=== PATIENT | male | born 1975 | race Caucasian/White ===

== ENCOUNTER 2018-04-08 07:40 | Day surgery (SDC) | payer MEDICAID ==
[2018-04-08] VITALS (10 sets, daily range): BP systolic 114–155; BP diastolic 65–98
[~2018-04-08] VITALS: Ht 162 cm; Wt 54.9 kg
[~2018-04-08 07:40] MED LIST: ALEN70TA13 PO; BENZ1TAB7 PO; CARB300C2 PO; HAL5T PO; KEP500T PO; LACT10SO32 PO; POLY17PO10 PO; TEMA30CA5 PO; VAL5T PO; VERA240T PO; famotidine 20mg tablet PO ONE; ringers solution, lacted 1,000 ML IV SCH
[2018-04-08] MEDS ORDERED: famotidine/PF 10 mg/ml inj IV ONE ×2 (10:28→10:30)
[2018-04-08] MEDS ORDERED: fentaNYL/PF 50MCG/1 ML 2ML syringe ONE ×2 (10:29→11:55)
[2018-04-08] MEDS ORDERED: midazolam 2 mg/2 ml injection ONE (10:30)
[2018-04-08] MEDS ORDERED: sevoflurane 250ml liquid IH ONE (11:08)
[2018-04-08] MEDS ORDERED: LIDOcaine 2% (20mg/ml) 5ml vial ONE (11:54)
[2018-04-08] MEDS ORDERED: glycopyrrolate 0.2mg/ml inj ONE (11:54)
[2018-04-08] MEDS ORDERED: propofol inj 20 ML IV ONE (11:54)
[2018-04-08] MEDS ORDERED: dexamethasone sod phosphate 4mg/ml inj. ONE (11:54)
[2018-04-08] MEDS ORDERED: rocuronium 10mg/ml inj IV ONE (11:54)
[2018-04-08] MEDS ORDERED: oxymetazoline 15 ML nasal spray NS ONE (11:54)
[2018-04-08] MEDS ORDERED: ondansetron/PF 4mg/2ml inj ONE (11:54)
[2018-04-08] MEDS ORDERED: neostigmine methylsulfate 1 MG/ML 10ml vial ONE (11:54)
[2018-04-08 12:11] LABS: BASOPHILS % (AUTO) 0.5 % (0-1); EOSINOPHILS # (AUTO) 0.1 X10'3 (0-0.9); EOSINOPHILS % (AUTO) 1.7 % (0-6); HEMATOCRIT 46.4 % (42.0-52.0); HEMOGLOBIN 15.5 g/dl (14.0-17.9); LYMPHOCYTES # (AUTO) 1.4 X10'3 (1.1-4.8); LYMPHOCYTES % (AUTO) 26.6 % (21-51); MEAN CORPUSCULAR HEMOGLOBIN 31.5 PG (27.0-31.0); MEAN CORPUSCULAR HGB CONC 33.4 % (33.0-36.5); MEAN CORPUSCULAR VOLUME 94.3 FL (78-98); MEAN PLATELET VOLUME 8.8 FL (7.4-10.4); MONOCYTES # (AUTO) 0.5 X10'3 (0-0.9); NEUTROPHILS # (AUTO) 3.3 X10'3 (1.8-7.7); NEUTROPHILS % (AUTO) 61.2 % (42-75); PLATELET COUNT 220 X10'3 (140-440); RED BLOOD COUNT 4.92 X10'6 (4.70-6.10); RED CELL DISTRIBUTION WIDTH 12.9 % (11.5-14.5); WHITE BLOOD COUNT 5.4 X10'3 (4.5-11.0)
[2018-04-08 12:12] LABS: ALANINE AMINOTRANSFERASE 36 U/L (12-78); ALBUMIN 3.8 G/DL (3.4-5.0); ALBUMIN/GLOBULIN RATIO 1.2 (1.1-1.5); ALKALINE PHOSPHATASE 80 IU/L (46-116); ANION GAP 3 (8-16); ASPARTATE AMINO TRANSFERASE 19 U/L (10-37); BILIRUBIN,TOTAL 0.2 MG/DL (0.1-1.0); BLOOD UREA NITROGEN 15 MG/DL (7-18); BUN/CREATININE RATIO 18.8 (5.4-32.0); CALCIUM 8.6 MG/DL (8.5-10.1); CHLORIDE 106 MMOL/L (99-107); GLUCOSE 84 MG/DL (70-104); POTASSIUM 4.2 MMOL/L (3.5-5.1); SODIUM 142 MMOL/L (135-145); TOTAL CARBON DIOXIDE 32.6 MMOL/L (24-32); eGFR > 90 ML/MIN
[2018-04-08] MEDS ORDERED: ringers solution, lacted 1,000 ML IV SCH (13:04)
[2018-04-08] MEDS ORDERED: ondansetron/PF 4mg/2ml inj IV PRN (13:05)
[2018-04-08] MEDS ORDERED: proCHLORperazine 10 MG/2 ml inj IV PRN (13:05)
[2018-04-08] MEDS ORDERED: morphine 4 MG/ML inj SYRINge IV PRN ×2 (13:05)
[2018-04-08] MEDS ORDERED: meperidine/PF 25mg/ml syringe IV PRN ×3 (13:05)
== END 2018-04-08 14:47 | disposition home or self-care (01) ==
LOC: PRE-OP 07:40 → PAS 14:47
PROVIDERS: ATTEND Dentist
DX: K02.9 Dental caries, unspecified (principal); K05.30 Chronic periodontitis, unspecified; K03.6 Deposits [accretions] on teeth; G80.8 Other cerebral palsy; M81.0 Age-related osteoporosis without current pathological fracture; K59.00 Constipation, unspecified; I73.00 Raynaud's syndrome without gangrene; Z89.9 Acquired absence of limb, unspecified; Z86.69 Personal history of other diseases of the nervous system and sense organs; Z98.890 Other specified postprocedural states; Z79.899 Other long term (current) drug therapy
CPT/HCPCS: 36415; 41899; 80053; 85025; J1100; J2001; J2250; J2405; J2704; J2710; J3010; J3490; J7120; A7000

== ENCOUNTER 2020-10-22 11:54 | Emergency (ER) | payer MEDICARE, MEDICAID ==
[~2020-10-22] VITALS: Ht 162.6 cm; Wt 52.7 kg
[~2020-10-22 11:54] MED LIST changes: -ALEN70TA13 PO; +ALEN70TA80 PO; +DIAZ5TAB22 PO; -VAL5T PO; -famotidine 20mg tablet PO ONE; -ringers solution, lacted 1,000 ML IV SCH
[2020-10-22] MEDS ORDERED: normal saline 1000ML IV soln IVB ONE ×2 (12:00→12:05)
[2020-10-22 12:45] LABS: BASOPHILS % (AUTO) 0.3 % (0-1); EOSINOPHILS % (AUTO) 0 % (0-6); HEMATOCRIT 45.3 % (42.0-52.0); HEMOGLOBIN 15.2 g/dl (14.0-17.9); LYMPHOCYTES # (AUTO) 0.6 X10'3 (1.1-4.8); LYMPHOCYTES % (AUTO) 5.6 % (21-51); MEAN CORPUSCULAR HEMOGLOBIN 32.1 PG (27.0-31.0); MEAN CORPUSCULAR HGB CONC 33.5 g/dL (33.0-36.5); MEAN CORPUSCULAR VOLUME 95.7 FL (78-98); MEAN PLATELET VOLUME 7.9 FL (7.4-10.4); MONOCYTES # (AUTO) 0.9 X10'3 (0-0.9); MONOCYTES % (AUTO) 8.4 % (2-12); NEUTROPHILS # (AUTO) 9.4 X10'3 (1.8-7.7); NEUTROPHILS % (AUTO) 85.7 % (42-75); PLATELET COUNT 201 X10'3 (140-440); RED BLOOD COUNT 4.74 X10'6 (4.70-6.10); RED CELL DISTRIBUTION WIDTH 13.4 % (11.5-14.5)
[2020-10-22 13:00] LABS: ALANINE AMINOTRANSFERASE 46 U/L (12-78); ALBUMIN 3.9 G/DL (3.4-5.0); ALBUMIN/GLOBULIN RATIO 1.1 (1.1-1.5); ALKALINE PHOSPHATASE 105 IU/L (46-116); ANION GAP 13 (8-16); ASPARTATE AMINO TRANSFERASE 24 U/L (10-37); BILIRUBIN,TOTAL 0.2 MG/DL (0.1-1.0); BLOOD UREA NITROGEN 15 MG/DL (7-18); CALCIUM 8.8 MG/DL (8.5-10.1); CHLORIDE 101 MMOL/L (99-107); CREATININE 0.94 MG/DL (0.60-1.10); GLUCOSE 110 MG/DL (70-104); POTASSIUM 4.3 MMOL/L (3.5-5.1); SODIUM 142 MMOL/L (135-145); TOTAL CARBON DIOXIDE 28.3 MMOL/L (24-32); TOTAL PROTEIN 7.3 G/DL (6.4-8.2); eGFR 87 ML/MIN
[2020-10-22] MEDS ORDERED: lactulose 20gm/30ml cup PO ONE (13:45)
[2020-10-22] MEDS ORDERED: mineral oil 133ml enema RC PRN (13:45)
[2020-10-22 15:00] VITALS: BP 142/94
--- NOTE | 2020-10-22 15:13 | NUR ---
NO STOOLS YET. SANTOS MIRANDA STATES THAT PATIENT IS OK FOR DISCHARGE AND SHOULD RESUME HIS ROUTINE BOWEL CARE AT THE FACILITY. CAREGIVER THAT IS AT THE BEDSIDE IS NOTIFIED OF DISCHARGE AND STATES THAT SHE WILL BE CALLING HER CO-WORKER FOR A RIDE. CAREGIVER STATES THAT IT MAY TAKE OVER AN HOUR FOR TRANSPORTATION BECAUSE THE DEPUTY DIRECTOR OF NURSING HAS TO MAKE MULTIPLE STOPS PRIOR TO ARRIVING HERE. IV REMOVED WITH TIP INTACT.
== END 2020-10-22 17:00 | disposition home or self-care (01) ==
LOC: ER 11:55
DX: K59.09 Other constipation (principal); R11.10 Vomiting, unspecified; G80.9 Cerebral palsy, unspecified; G40.909 Epilepsy, unspecified, not intractable, without status epilepticus; M81.0 Age-related osteoporosis without current pathological fracture; Z79.899 Other long term (current) drug therapy
CPT/HCPCS: 36415; 74176; 80053; 83605; 85025; 87040; 87186; 96360; 99284; J7030; 87077

== ENCOUNTER 2021-01-08 10:21 | Emergency (ER) | payer MEDICARE, MEDICAID ==
[~2021-01-08] VITALS: Ht 160 cm; Wt 59.1 kg
[2021-01-08 11:09] LABS: BASOPHILS % (AUTO) 0.5 % (0-1); EOSINOPHILS % (AUTO) 0.7 % (0-6); HEMATOCRIT 44.1 % (42.0-52.0); HEMOGLOBIN 14.9 g/dl (14.0-17.9); LYMPHOCYTES # (AUTO) 1.3 X10'3 (1.1-4.8); LYMPHOCYTES % (AUTO) 20.5 % (21-51); MEAN CORPUSCULAR HEMOGLOBIN 32.2 PG (27.0-31.0); MEAN CORPUSCULAR HGB CONC 33.7 g/dL (33.0-36.5); MEAN CORPUSCULAR VOLUME 95.4 FL (78-98); MEAN PLATELET VOLUME 7.4 FL (7.4-10.4); MONOCYTES # (AUTO) 0.7 X10'3 (0-0.9); MONOCYTES % (AUTO) 10.6 % (2-12); NEUTROPHILS # (AUTO) 4.5 X10'3 (1.8-7.7); NEUTROPHILS % (AUTO) 67.7 % (42-75); PLATELET COUNT 187 X10'3 (140-440); RED BLOOD COUNT 4.62 X10'6 (4.70-6.10); RED CELL DISTRIBUTION WIDTH 13.2 % (11.5-14.5); WHITE BLOOD COUNT 6.6 X10'3 (4.5-11.0)
[2021-01-08 11:15] LABS: CLARITY,URINE CLEAR (Clear); COLOR,URINE YELLOW (Yellow); GLUCOSE, URINE NEGATIVE (Neg); KETONES,URINE TRACE mg/dl (Neg); LEUKOCYTE ESTERASE ,URINE NEGATIVE (Neg); NITRITES, URINE NEGATIVE (Neg); OCCULT BLOOD,URINE NEGATIVE (Neg); PH,URINE 6.5 (4.8-8.0); PROTEIN,URINE NEGATIVE (Neg); UROBILINOGEN,URINE 0.2 E.U/dL (0.2-1.0)
[2021-01-08 11:18] LABS: ALBUMIN 3.7 G/DL (3.4-5.0); ANION GAP 5 (8-16); BLOOD UREA NITROGEN 9 MG/DL (7-18); BUN/CREATININE RATIO 11.3 (5.4-32.0); CALCIUM 8.3 MG/DL (8.5-10.1); CHLORIDE 103 MMOL/L (99-107); GLUCOSE 70 MG/DL (70-104); POTASSIUM 4.4 MMOL/L (3.5-5.1); SODIUM 140 MMOL/L (135-145); TOTAL CARBON DIOXIDE 32.2 MMOL/L (24-32); eGFR > 90 ML/MIN
[2021-01-08 11:23] LABS: UA COLLECTION TYPE STRAIGHT CATH
[2021-01-08 12:54] VITALS: BP 110/60
== END 2021-01-08 12:55 | disposition home or self-care (01) ==
LOC: ER 10:21
DX: K59.00 Constipation, unspecified (principal); R39.198 Other difficulties with micturition; Z86.69 Personal history of other diseases of the nervous system and sense organs; Z79.899 Other long term (current) drug therapy
CPT/HCPCS: 36415; 80048; 81003; 85025; 99284

== ENCOUNTER 2021-03-17 10:07 | Emergency (ER) | payer MEDICARE, MEDICAID ==
[~2021-03-17] VITALS: Ht 162.6 cm; Wt 64.1 kg
[2021-03-17 11:04] VITALS: BP 118/92
[2021-03-17] MEDS ORDERED: ALBU8HFA PO (12:46)
[2021-03-17] MEDS ORDERED: AMOX-422 PO (12:46)
[2021-03-17] MEDS ORDERED: ROBCFL PO (12:46)
[2021-03-17] MEDS ORDERED: EUCA50OI5 TP (13:00)
== END 2021-03-17 14:03 | disposition home or self-care (01) ==
LOC: ER 10:08
DX: J20.9 Acute bronchitis, unspecified (principal); Z20.822 Contact with and (suspected) exposure to COVID-19; G40.909 Epilepsy, unspecified, not intractable, without status epilepticus; M81.0 Age-related osteoporosis without current pathological fracture; Z79.2 Long term (current) use of antibiotics; Z79.899 Other long term (current) drug therapy
CPT/HCPCS: 71045; 87635; 99284; C9803

== ENCOUNTER 2021-07-06 16:12 | Emergency (ER) | payer MEDICARE, MEDICAID ==
[~2021-07-06] VITALS: Ht 160 cm; Wt 52.7 kg
[~2021-07-06 16:12] MED LIST changes: +EUCA50OI5 TP
[2021-07-06 16:45] VITALS: BP 132/79
[2021-07-06] MEDS ORDERED: AMOX-117 PO (18:26)
[2021-07-06] MEDS ORDERED: IBUP-1986 PO (18:26)
[2021-07-06] MEDS ORDERED: amox tr/potassium clavulanate 875/125mg TAB PO ONE (18:30)
[2021-07-06] MEDS ORDERED: HYDROcodone/acetaminophen 5mg/325mg tablet PO ONE (18:30)
== END 2021-07-06 18:52 | disposition home or self-care (01) ==
LOC: ER 16:12
DX: H60.502 Unspecified acute noninfective otitis externa, left ear (principal); G80.9 Cerebral palsy, unspecified; Z86.69 Personal history of other diseases of the nervous system and sense organs; Z79.2 Long term (current) use of antibiotics; Z79.899 Other long term (current) drug therapy
CPT/HCPCS: 99283

== ENCOUNTER 2021-07-15 08:41 | Day surgery (SDC) | payer MEDICARE, MEDICAID ==
[~2021-07-15 08:41] MED LIST changes: +AMOX-117 PO; +IBUP-1986 PO; +MIDAZolam 1 MG/ML 5ML VIAL ONE; +diphenhydrAMINE 50 mg/ml inj ONE; +fentaNYL/PF 50MCG/1 ML 2ML syringe ONE
[2021-07-15 08:50] VITALS: BP 143/96
[2021-07-15] MEDS ORDERED: VERA180C3 (09:16)
[2021-07-15] MEDS ORDERED: CALC-855 PO (09:17)
[2021-07-15] MEDS ORDERED: FLO0.4C PO (09:19)
[2021-07-15] MEDS ORDERED: FAMO40TA73 PO (09:20)
[2021-07-15] MEDS ORDERED: LINA290C PO (09:21)
[2021-07-15] MEDS ORDERED: LORA10TA7 PO (09:21)
[2021-07-15] MEDS ORDERED: LACT1CAP75 PO (09:22)
[2021-07-15] MEDS ORDERED: MULT-1085 PO (09:22)
[2021-07-15] MEDS ORDERED: SIME80TA15 PO (09:23)
[2021-07-15] MEDS ORDERED: SENN-263 PO (09:24)
[2021-07-15] MEDS ORDERED: ASCO500C18 PO (09:25)
[2021-07-15] MEDS ORDERED: diphenhydrAMINE 50 mg/ml inj ONE (10:32)
[2021-07-15 10:55] VITALS: BP 157/85
[2021-07-15 11:05] VITALS: BP 150/101
[2021-07-15 11:15] VITALS: BP 172/101
[2021-07-15 11:25] VITALS: BP 129/73
== END 2021-07-15 11:50 | disposition home or self-care (01) ==
LOC: GI LAB 08:41
PROVIDERS: ATTEND Internal Medicine Gastroenterology
DX: K92.1 Melena (principal); K63.89 Other specified diseases of intestine; I73.00 Raynaud's syndrome without gangrene; G40.909 Epilepsy, unspecified, not intractable, without status epilepticus; G80.9 Cerebral palsy, unspecified; Z79.899 Other long term (current) drug therapy
CPT/HCPCS: 45378; 99153; G0500; J1200; J2250; J3010; J7040; Z7512; 99152; A4620

== ENCOUNTER 2022-10-27 16:14 | Emergency (ER) | payer MEDICARE, MEDICAID ==
[~2022-10-27] VITALS: Ht 154.9 cm; Wt 65.7 kg
[~2022-10-27 16:14] MED LIST changes: -AMOX-117 PO; +ASCO500C18 PO; -BENZ1TAB7 PO; +BENZ1TAB93 PO; +CALC-855 PO; +FAMO40TA73 PO; +FLO0.4C PO; +LACT1CAP75 PO; +LINA290C PO; +LORA10TA7 PO; -MIDAZolam 1 MG/ML 5ML VIAL ONE; +MULT-1085 PO; +SENN-263 PO; +SIME80TA15 PO; +VERA180C3; -VERA240T PO; -diphenhydrAMINE 50 mg/ml inj ONE; -fentaNYL/PF 50MCG/1 ML 2ML syringe ONE
[2022-10-27 20:16] LABS: CLARITY,URINE CLEAR (Clear); GLUCOSE, URINE NEGATIVE (Neg); KETONES,URINE TRACE mg/dl (Neg); LEUKOCYTE ESTERASE ,URINE NEGATIVE (Neg); NITRITES, URINE NEGATIVE (Neg); OCCULT BLOOD,URINE NEGATIVE (Neg); PH,URINE 6.5 (4.8-8.0); PROTEIN,URINE NEGATIVE (Neg); UROBILINOGEN,URINE 0.2 E.U/dL (0.2-1.0)
[2022-10-27 20:20] LABS: COLOR,URINE DARK YELLOW (Yellow); UA COLLECTION TYPE STRAIGHT CATH
[2022-10-27 20:47] VITALS: BP 136/75
== END 2022-10-27 20:48 | disposition home or self-care (01) ==
LOC: ER 16:14
DX: R33.9 Retention of urine, unspecified (principal); Z79.899 Other long term (current) drug therapy; Z79.2 Long term (current) use of antibiotics
CPT/HCPCS: 81003; 99284

== ENCOUNTER 2022-10-31 13:20 | Emergency (ER) | payer MEDICARE, MEDICAID ==
[~2022-10-31] VITALS: Ht 162.6 cm; Wt 63.6 kg
[2022-10-31 14:42] LABS: CLARITY,URINE CLEAR (Clear); COLOR,URINE YELLOW (Yellow); GLUCOSE, URINE NEGATIVE (Neg); KETONES,URINE NEGATIVE (Neg); LEUKOCYTE ESTERASE ,URINE NEGATIVE (Neg); NITRITES, URINE NEGATIVE (Neg); OCCULT BLOOD,URINE NEGATIVE (Neg); PROTEIN,URINE NEGATIVE (Neg); UROBILINOGEN,URINE 0.2 E.U/dL (0.2-1.0)
[2022-10-31 14:50] LABS: UA COLLECTION TYPE STRAIGHT CATH
[2022-10-31 15:37] VITALS: BP 117/89
== END 2022-10-31 15:39 | disposition home or self-care (01) ==
LOC: ER 13:21
DX: R33.9 Retention of urine, unspecified (principal)
CPT/HCPCS: 51702; 81003; 99284; A4314; C1758

== ENCOUNTER 2022-11-06 10:31 | Emergency (ER) | payer MEDICARE, MEDICAID ==
[~2022-11-06] VITALS: Ht 162.6 cm; Wt 59.0 kg
[2022-11-06 12:43] LABS: CLARITY,URINE CLOUDY (Clear); COLOR,URINE YELLOW (Yellow); GLUCOSE, URINE NEGATIVE (Neg); KETONES,URINE NEGATIVE (Neg); LEUKOCYTE ESTERASE ,URINE NEGATIVE (Neg); NITRITES, URINE NEGATIVE (Neg); OCCULT BLOOD,URINE NEGATIVE (Neg); PROTEIN,URINE NEGATIVE (Neg); UROBILINOGEN,URINE 0.2 E.U/dL (0.2-1.0)
[2022-11-06 12:48] LABS: UA COLLECTION TYPE FOLEY CATH
[2022-11-06 12:50] LABS: BACTERIA,URINE 2+ /HPF (Neg); MUCUS STRANDS FEW /LPF (Neg); RBC,URINE 0-2 /HPF (0-2); SQUAMOUS EPITHELIAL CELL,UR FEW /LPF (FEW); WBC,URINE 0-4 /HPF (0-4)
[2022-11-06 12:51] LABS: AMORPHOUS PHOSPHATES 1+
[2022-11-06 13:25] VITALS: BP 111/73
== END 2022-11-06 14:15 | disposition home or self-care (01) ==
LOC: ER 10:32
DX: R33.9 Retention of urine, unspecified (principal); R62.50 Unspecified lack of expected normal physiological development in childhood; M81.0 Age-related osteoporosis without current pathological fracture; N40.0 Benign prostatic hyperplasia without lower urinary tract symptoms; Z99.3 Dependence on wheelchair; Z79.899 Other long term (current) drug therapy
CPT/HCPCS: 51702; 81001; 99284; A4314

== ENCOUNTER 2022-12-22 16:33 | Emergency (ER) | payer MEDICARE, MEDICAID ==
[~2022-12-22] VITALS: Ht 165.1 cm; Wt 64.8 kg
[~2022-12-22 16:33] MED LIST changes: -VERA180C3; +VERA180C3 PO
[2022-12-22 17:21] VITALS: BP 128/45; PULSE 87; RESP 16; TEMP 98.2; O2SAT 96
[2022-12-22 18:42] LABS: BASOPHILS % (AUTO) 0.4 % (0-1); EOSINOPHILS # (AUTO) 0.1 X10'3 (0-0.9); EOSINOPHILS % (AUTO) 0.9 % (0-6); HEMATOCRIT 44.6 % (42.0-52.0); HEMOGLOBIN 15.1 g/dl (14.0-17.9); LYMPHOCYTES # (AUTO) 2.1 X10'3 (1.1-4.8); LYMPHOCYTES % (AUTO) 19.3 % (21-51); MEAN CORPUSCULAR HEMOGLOBIN 31.8 PG (27.0-31.0); MEAN CORPUSCULAR HGB CONC 33.9 g/dL (33.0-36.5); MEAN CORPUSCULAR VOLUME 93.6 FL (78-98); MONOCYTES # (AUTO) 0.9 X10'3 (0-0.9); MONOCYTES % (AUTO) 8.4 % (2-12); NEUTROPHILS # (AUTO) 7.6 X10'3 (1.8-7.7); PLATELET COUNT 227 X10'3 (140-440); RED BLOOD COUNT 4.77 X10'6 (4.70-6.10); RED CELL DISTRIBUTION WIDTH 12.9 % (11.5-14.5); WHITE BLOOD COUNT 10.7 X10'3 (4.5-11.0)
[2022-12-22 18:52] LABS: BILIRUBIN,URINE SMALL (Neg); CLARITY,URINE CLOUDY (Clear); COLOR,URINE YELLOW (Yellow); GLUCOSE, URINE NEGATIVE (Neg); KETONES,URINE NEGATIVE (Neg); LEUKOCYTE ESTERASE ,URINE TRACE (Neg); NITRITES, URINE POSITIVE (Neg); OCCULT BLOOD,URINE LARGE (Neg); PH,URINE 5.5 (4.8-8.0); PROTEIN,URINE 100 mg/dl (Neg); UROBILINOGEN,URINE 0.2 E.U/dL (0.2-1.0)
[2022-12-22 18:56] LABS: UA COLLECTION TYPE FOLEY CATH
[2022-12-22 18:59] LABS: BACTERIA,URINE 4+ /HPF (Neg); MUCUS STRANDS NONE SEEN /LPF (Neg); RBC,URINE TNTC /HPF (0-2); SQUAMOUS EPITHELIAL CELL,UR FEW /LPF (FEW); WBC,URINE TNTC /HPF (0-4)
[2022-12-22 19:01] LABS: ALANINE AMINOTRANSFERASE 28 U/L (12-78); ALKALINE PHOSPHATASE 113 IU/L (46-116); ANION GAP 10 (8-16); ASPARTATE AMINO TRANSFERASE 13 U/L (10-37); BILIRUBIN,TOTAL 0.3 MG/DL (0.1-1.0); BLOOD UREA NITROGEN 12 MG/DL (7-18); BUN/CREATININE RATIO 14.6 (10.0-20.0); CHLORIDE 105 MMOL/L (99-107); CREATININE 0.82 MG/DL (0.60-1.10); GLUCOSE 93 MG/DL (70-104); POTASSIUM 4.1 MMOL/L (3.5-5.1); SODIUM 145 MMOL/L (135-145); TOTAL CARBON DIOXIDE 29.6 MMOL/L (24-32); TOTAL PROTEIN 7.9 G/DL (6.4-8.2); eCRCL 96 ML/MIN; eGFR > 90 ML/MIN
[2022-12-22] MEDS ORDERED: SULF1TAB45 PO (20:17)
[2022-12-22] MEDS ORDERED: ERYT1OIN6 EACHEYE (20:17)
[2022-12-22] MEDS ORDERED: erythromycin ophthalmic ointment 1gm tube LEFTEYE ONE (20:20)
[2022-12-22] MEDS ORDERED: sulfamethoxazole/trimethoprim DS (800/160mg) tablet PO ONE (20:20)
== END 2022-12-22 20:35 | disposition home health service (06) ==
LOC: ER 16:33
DX: N39.0 Urinary tract infection, site not specified (principal); H10.9 Unspecified conjunctivitis; T83.098A Other mechanical complication of other urinary catheter, initial encounter; Z79.899 Other long term (current) drug therapy
CPT/HCPCS: 36415; 80053; 81001; 85025; 87077; 87088; 87186; 99283

== ENCOUNTER 2022-12-24 10:19 | Inpatient (IN) | payer MEDICARE, MEDICAID ==
[~2022-12-24] VITALS: Ht 160 cm; Wt 65.7 kg
[~2022-12-24 10:19] MED LIST changes: +ERYT1OIN6 EACHEYE; +SULF1TAB45 PO
[2022-12-24] MEDS ORDERED: normal saline 1000ML IV soln IV ONE (11:15)
[2022-12-24] MEDS ORDERED: piperacillin/tazo 3.375gm/50ml 50 ML IV ONE (11:15)
[2022-12-24] MEDS ORDERED: vancomycin/NS 1 GM ADD-VANTAGE 250 ML IV ONE (11:15)
[2022-12-24] MEDS ORDERED: acetaminophen 650mg rectal suppository RC STA (11:15)
--- NOTE | 2022-12-24 11:23 | NUR ---
Pt to CT
[2022-12-24 11:53] LABS: BASOPHILS % (AUTO) 0.5 % (0-1); EOSINOPHILS # (AUTO) 0.1 X10'3 (0-0.9); EOSINOPHILS % (AUTO) 1.4 % (0-6); HEMATOCRIT 37.1 % (42.0-52.0); HEMOGLOBIN 12.2 g/dl (14.0-17.9); LYMPHOCYTES # (AUTO) 1.1 X10'3 (1.1-4.8); LYMPHOCYTES % (AUTO) 16.1 % (21-51); MEAN CORPUSCULAR HEMOGLOBIN 31.4 PG (27.0-31.0); MEAN CORPUSCULAR VOLUME 95.2 FL (78-98); MONOCYTES # (AUTO) 0.8 X10'3 (0-0.9); MONOCYTES % (AUTO) 11.9 % (2-12); NEUTROPHILS # (AUTO) 4.9 X10'3 (1.8-7.7); NEUTROPHILS % (AUTO) 70.1 % (42-75); PLATELET COUNT 143 X10'3 (140-440); RED CELL DISTRIBUTION WIDTH 13.2 % (11.5-14.5)
[2022-12-24 12:05] LABS: ALANINE AMINOTRANSFERASE 18 U/L (12-78); ALBUMIN 2.9 G/DL (3.4-5.0); ALBUMIN/GLOBULIN RATIO 0.9 (1.1-1.5); ALKALINE PHOSPHATASE 81 IU/L (46-116); ANION GAP 6 (8-16); ASPARTATE AMINO TRANSFERASE 13 U/L (10-37); BILIRUBIN,TOTAL 0.3 MG/DL (0.1-1.0); BLOOD UREA NITROGEN 13 MG/DL (7-18); BUN/CREATININE RATIO 17.3 (10.0-20.0); CALCIUM 7.4 MG/DL (8.5-10.1); CHLORIDE 113 MMOL/L (99-107); CREATININE 0.75 MG/DL (0.60-1.10); GLUCOSE 73 MG/DL (70-104); POTASSIUM 3.1 MMOL/L (3.5-5.1); SODIUM 145 MMOL/L (135-145); TOTAL CARBON DIOXIDE 25.7 MMOL/L (24-32); eCRCL 97 ML/MIN; eGFR > 90 ML/MIN
[2022-12-24 12:08] LABS: MAGNESIUM 1.8 MG/DL (1.5-2.4)
[2022-12-24] MEDS ORDERED: potassium Cl 20 mEq SR tablet PO STA (12:16)
[2022-12-24] MEDS ORDERED: acetaminophen 325mg/10.15ml oral unit dose solution PO ONE (12:20)
[2022-12-24 13:45] LABS: BILIRUBIN,URINE MODERATE (Neg); CLARITY,URINE TURBID (Clear); COLOR,URINE BROWN (Yellow); GLUCOSE, URINE NEGATIVE (Neg); KETONES,URINE TRACE mg/dl (Neg); LEUKOCYTE ESTERASE ,URINE MODERATE (Neg); NITRITES, URINE POSITIVE (Neg); OCCULT BLOOD,URINE LARGE (Neg); PROTEIN,URINE 100 mg/dl (Neg)
[2022-12-24 14:10] LABS: UA COLLECTION TYPE FOLEY CATH
[2022-12-24 14:12] LABS: BACTERIA,URINE 3+ /HPF (Neg); RBC,URINE TNTC /HPF (0-2); SQUAMOUS EPITHELIAL CELL,UR FEW /LPF (FEW); WBC,URINE TNTC /HPF (0-4)
[2022-12-24 14:13] LABS: CAL OXALATE CRYSTALS FEW /HPF (NEGATIVE)
[2022-12-24] MEDS ORDERED: magnesium 4gm in 100ml NS 100 ML IV PRN (14:25)
[2022-12-24] MEDS: normal saline 1000ml 1,000 ML IV SCH (14:25)
[2022-12-24] MEDS ORDERED: potassium Cl 40MEQ/1/2NS 520ml 520 ML IV PRN (14:25)
[2022-12-24] MEDS ORDERED: magnesium 2GM in 50ml NS 50 ML IV PRN (14:25)
[2022-12-24] MEDS ORDERED: morphine 2 MG/ML inj. syringe IV PRN (14:25)
[2022-12-24] MEDS ORDERED: ondansetron/PF 4mg/2ml inj IV PRN (14:25)
[2022-12-24] MEDS ORDERED: potassium Cl 20 mEq SR tablet PO PRN ×2 (14:25)
[2022-12-24] MEDS ORDERED: magnesium Cl slow-release 64mg tablet PO PRN (14:25)
--- NOTE | 2022-12-24 14:40 | NUR ---
Patient brought up from ER. Report taken from Rena. Patient is non verbal so he was made comfortable and NS started. Bed alarm on.
[2022-12-24] MEDS ORDERED: ALBU18HF2 IH (15:12)
[2022-12-24] MEDS ORDERED: CARB100T7 PO ×2 (15:12)
[2022-12-24] MEDS ORDERED: SULF1TAB49 PO (15:12)
[2022-12-24] MEDS ORDERED: ERYT1OIN6 EACHEYE (15:12)
[2022-12-24 18:00] VITALS: BP 128/79; PULSE 86; RESP 16; TEMP 97.1
--- NOTE | 2022-12-24 19:04 | NUR ---
Problems reprioritized. Patient report given, questions answered & plan of care reviewed with
--- NOTE | 2022-12-24 19:05 | NUR ---
Patient in room PCU 3018. I have received report from DIANE OLMOS and had the opportunity to ask questions and assume patient care.
[2022-12-24] MEDS: K and/or MAG REPLACEMENT MC SCH (20:00)
[2022-12-24] MEDS ORDERED: PERFLUTREN PROTEIN-A MICROSPHR (Optison) 0.22 MG/ML 3ML VIAL IV PRN (21:30)
[2022-12-24 22:00] VITALS: BP 135/78; PULSE 90; RESP 16; TEMP 97.6; O2SAT 97
[2022-12-25] VITALS (7 sets, daily range): BP systolic 105–127; BP diastolic 46–80; PULSE 55–98; RESP 13–22; TEMP 97.1–99; O2SAT 92–99
[2022-12-25] MEDS: normal saline 1000ml 1,000 ML IV SCH ×3 (04:00→17:15)
--- NOTE | 2022-12-25 06:35 | NUR ---
Patient in room U 3018. I have received report from Lenore Domingo and had the opportunity to ask questions and assume patient care. Addendum: 12/25/22 at 0635 by Angel Espana RN Amended: Links added.
--- NOTE | 2022-12-25 06:35 | NUR ---
Problems reprioritized. Patient report given, questions answered & plan of care reviewed with FAUSTO ROMERO.
[2022-12-25 06:52] LABS: BASOPHILS % (AUTO) 0.4 % (0-1); EOSINOPHILS # (AUTO) 0.1 X10'3 (0-0.9); EOSINOPHILS % (AUTO) 1.4 % (0-6); HEMATOCRIT 40.6 % (42.0-52.0); HEMOGLOBIN 13.8 g/dl (14.0-17.9); LYMPHOCYTES # (AUTO) 1.2 X10'3 (1.1-4.8); LYMPHOCYTES % (AUTO) 12.9 % (21-51); MEAN CORPUSCULAR HEMOGLOBIN 31.7 PG (27.0-31.0); MEAN CORPUSCULAR HGB CONC 34.1 g/dL (33.0-36.5); MEAN CORPUSCULAR VOLUME 92.8 FL (78-98); MEAN PLATELET VOLUME 8.3 FL (7.4-10.4); MONOCYTES # (AUTO) 0.9 X10'3 (0-0.9); MONOCYTES % (AUTO) 9.8 % (2-12); NEUTROPHILS # (AUTO) 7.2 X10'3 (1.8-7.7); NEUTROPHILS % (AUTO) 75.5 % (42-75); PLATELET COUNT 157 X10'3 (140-440); RED BLOOD COUNT 4.37 X10'6 (4.70-6.10); RED CELL DISTRIBUTION WIDTH 12.6 % (11.5-14.5); WHITE BLOOD COUNT 9.6 X10'3 (4.5-11.0)
[2022-12-25 07:00] LABS: ALBUMIN 3.3 G/DL (3.4-5.0); ANION GAP 8 (8-16); BLOOD UREA NITROGEN 6 MG/DL (7-18); CALCIUM 8.7 MG/DL (8.5-10.1); CHLORIDE 105 MMOL/L (99-107); CREATININE 0.75 MG/DL (0.60-1.10); GLUCOSE 88 MG/DL (70-104); MAGNESIUM 1.9 MG/DL (1.5-2.4); SODIUM 139 MMOL/L (135-145); TOTAL CARBON DIOXIDE 26.2 MMOL/L (24-32); eCRCL 97 ML/MIN; eGFR > 90 ML/MIN
[2022-12-25] MEDS: K and/or MAG REPLACEMENT MC SCH ×2 (07:45→20:00)
[2022-12-25] MEDS: CefTRIAXone/D5W-Rocephin 1gm 50 ML IV SCH (08:04)
--- NOTE | 2022-12-25 13:16 | NUR ---
MARY FROM [facility] DROPPED OFF A POLST SIGNED BY THE PATIENT'S FATHER . IT STILL NEEDS TO BE SIGNED BY A DOCTOR . I LET MARY KNOW WE WILL CALL HIM IF THERE ARE ANY DIFFICULTIES
--- NOTE | 2022-12-25 13:18 | NUR ---
MARY SWANSON [facility] PHONE [phone]
--- NOTE | 2022-12-25 13:32 | NUR ---
PAGER ID: [phone] MESSAGE: Marti Ruvalcaba-had a POLST dropped off with the question if you can sign it or does it have to be his PCP, Angel Dong
--- NOTE | 2022-12-25 18:16 | NUR ---
Problems reprioritized. Patient report given, questions answered & plan of care reviewed with Rissa. Addendum: 12/25/22 at 1816 by Angel Espana RN Amended: Links added.
--- NOTE | 2022-12-25 18:45 | NUR ---
Patient in room PCU 3018. I have received report from Angel LAMBERT and had the opportunity to ask questions and assume patient care.
--- NOTE | 2022-12-25 22:00 | NUR ---
Pt room assignment changed from 3015B to 9815P
[2022-12-26 02:00] VITALS: BP 136/68; PULSE 110; RESP 21; TEMP 97.3; O2SAT 96
--- NOTE | 2022-12-26 05:08 | NUR ---
DIANE documentation: I have reviewed and agree with all interventions, assessments performed and documented by Mau CONTRERAS. Addendum: 12/26/22 at 0508 by Rissa Livingston RN Amended: Links added.
--- NOTE | 2022-12-26 06:22 | NUR ---
Problems reprioritized. Patient report given, questions answered & plan of care reviewed with Bob LAMBERT.
[2022-12-26] MEDS: normal saline 1000ml 1,000 ML IV SCH ×2 (06:25→14:52)
--- NOTE | 2022-12-26 06:33 | NUR ---
Patient in room PCU 3026. I have received report from FAUSTO GUARDADO and had the opportunity to ask questions and assume patient care.
[2022-12-26 06:59] VITALS: BP 127/66; PULSE 79; RESP 18; TEMP 98.6; O2SAT 93
[2022-12-26 07:25] VITALS: RESP 18; O2SAT 93
[2022-12-26] MEDS: K and/or MAG REPLACEMENT MC SCH (08:00)
[2022-12-26] MEDS: CefTRIAXone/D5W-Rocephin 1gm 50 ML IV SCH (08:07)
[2022-12-26 08:40] LABS: BASOPHILS % (AUTO) 0.2 % (0-1); EOSINOPHILS # (AUTO) 0.2 X10'3 (0-0.9); EOSINOPHILS % (AUTO) 1.6 % (0-6); HEMATOCRIT 42.7 % (42.0-52.0); HEMOGLOBIN 14.4 g/dl (14.0-17.9); LYMPHOCYTES # (AUTO) 1.3 X10'3 (1.1-4.8); LYMPHOCYTES % (AUTO) 14.1 % (21-51); MEAN CORPUSCULAR HEMOGLOBIN 31.9 PG (27.0-31.0); MEAN CORPUSCULAR HGB CONC 33.7 g/dL (33.0-36.5); MEAN CORPUSCULAR VOLUME 94.5 FL (78-98); MEAN PLATELET VOLUME 9.1 FL (7.4-10.4); MONOCYTES % (AUTO) 10.5 % (2-12); NEUTROPHILS % (AUTO) 73.6 % (42-75); PLATELET COUNT 168 X10'3 (140-440); RED BLOOD COUNT 4.52 X10'6 (4.70-6.10); RED CELL DISTRIBUTION WIDTH 12.8 % (11.5-14.5); WHITE BLOOD COUNT 9.5 X10'3 (4.5-11.0)
[2022-12-26 09:10] LABS: ALBUMIN 3.2 G/DL (3.4-5.0); ANION GAP 11 (8-16); BLOOD UREA NITROGEN 7 MG/DL (7-18); BUN/CREATININE RATIO 10.3 (10.0-20.0); CALCIUM 8.8 MG/DL (8.5-10.1); CHLORIDE 107 MMOL/L (99-107); CREATININE 0.68 MG/DL (0.60-1.10); GLUCOSE 87 MG/DL (70-104); MAGNESIUM 2.2 MG/DL (1.5-2.4); POTASSIUM 4.1 MMOL/L (3.5-5.1); SODIUM 140 MMOL/L (135-145); TOTAL CARBON DIOXIDE 21.8 MMOL/L (24-32); eCRCL 107 ML/MIN; eGFR > 90 ML/MIN
[2022-12-26 11:23] VITALS: BP 132/83; PULSE 77; RESP 16; TEMP 97.5; O2SAT 100
--- NOTE | 2022-12-26 11:59 | NUR ---
Dr. Abbott in to see patient. Dr. Abbott aware patient's home med needs to be addressed as patient has not been getting his home meds. Addendum: 12/26/22 at 1340 by Bob Benson RN Dr. Abbott also aware and seen patient POLST in chart states DNR.
[2022-12-26] MEDS ORDERED: non-formulary drug (Alendronate Sodium 70 MG) PO SCH (14:10)
[2022-12-26] MEDS ORDERED: AMOX-419 PO (14:55)
[2022-12-26 15:35] VITALS: BP 139/89; PULSE 83; RESP 22; TEMP 98; O2SAT 93
[2022-12-26] MEDS ORDERED: sennosides 8.6mg tablet PO SCH (16:00)
[2022-12-26] MEDS ORDERED: tamsulosin 0.4mg capsule PO SCH (16:00)
[2022-12-26] MEDS ORDERED: albuterol 2.5 MG/3 ML nebule NEB PRN (16:00)
--- NOTE | 2022-12-26 16:08 | NUR ---
Patient has dc orders. Lo MAO attempting to call half-way for patient to be picked up and per lo "they are looking for a nurse to pick him up and can't find anyone yet."
--- NOTE | 2022-12-26 17:29 | NUR ---
Patient caregiver Tacho from care home here to pear picker patient. Discussed discharge instructions and new prescription with caregiver. All questions answered. Patient dc'd with caregiver in wheelchair. Patient was alert with no s/s of apparent acute distress at time of dc. IV dc'd.
[2022-12-26] MEDS ORDERED: lactulose 20gm/30ml cup PO SCH (20:00)
[2022-12-26] MEDS ORDERED: simethicone 80mg chew tab PO SCH (20:00)
[2022-12-26] MEDS ORDERED: levetiracetam 250mg tablet PO SCH (20:00)
[2022-12-26] MEDS ORDERED: benztropine 1mg tablet PO SCH (20:00)
[2022-12-26] MEDS ORDERED: haloperidol 5mg tablet PO SCH (20:00)
[2022-12-26] MEDS ORDERED: polyethylene glycol 3350 17gm powd pack PO SCH (20:00)
[2022-12-26] MEDS ORDERED: sulfamethoxazole/trimethoprim DS (800/160mg) tablet PO SCH (20:00)
[2022-12-26] MEDS ORDERED: ascorbic acid 500mg tablet PO SCH (20:00)
[2022-12-26] MEDS ORDERED: carBAMazepine 100mg chewable tablet PO SCH (21:00)
[2022-12-26] MEDS ORDERED: temazepam 15mg capsule PO SCH (21:00)
[2022-12-27] MEDS ORDERED: lactobacillus rhamnosus 10,000 MMU CELLS/CAPSULE PO SCH (08:00)
[2022-12-27] MEDS ORDERED: multivitamins, therapeutics tablet PO SCH (08:00)
[2022-12-27] MEDS ORDERED: verapamil SR 180mg tablet PO SCH (08:00)
[2022-12-27] MEDS ORDERED: famotidine 20mg tablet PO SCH (08:00)
[2022-12-27] MEDS ORDERED: LINACLOTIDE 290 MCG PO SCH (08:00)
[2022-12-27] MEDS ORDERED: carBAMazepine 100mg chewable tablet PO SCH (08:00)
[2022-12-27] MEDS ORDERED: calcium carbonate/vitamin D3 tablet PO SCH (08:00)
== END 2022-12-26 17:32 | disposition home or self-care (01) | DRG 699 ==
LOC: ER 10:20 → ED HOLD 14:25 → EDBEDREQ 15:31 → PCU 3S 17:07
PROVIDERS: ADMIT Internal Medicine; ATTEND Internal Medicine
DX: T83.511A Infection and inflammatory reaction due to indwelling urethral catheter, initial encounter (principal); N13.8 Other obstructive and reflux uropathy; N39.0 Urinary tract infection, site not specified; Z66 Do not resuscitate; B96.20 Unspecified Escherichia coli [E. coli] as the cause of diseases classified elsewhere; E87.6 Hypokalemia; G40.909 Epilepsy, unspecified, not intractable, without status epilepticus; N40.1 Benign prostatic hyperplasia with lower urinary tract symptoms; M20.032 Swan-neck deformity of left finger(s); M81.0 Age-related osteoporosis without current pathological fracture; K59.09 Other constipation; R25.1 Tremor, unspecified; R53.83 Other fatigue; Z79.899 Other long term (current) drug therapy; Y84.6 Urinary catheterization as the cause of abnormal reaction of the patient, or of later complication, without mention of misadventure at the time of the procedure; Y92.89 Other specified places as the place of occurrence of the external cause; R31.9 Hematuria, unspecified
CPT/HCPCS: 36415; 71045; 74176; 80048; 80053; 81001; 83605; 83735; 84145; 84484; 85025; 87040; 87077; 87081; 87088; 87186; 93005; 93308; 96365; 96367; 99283; 99285; A6258; A6455; G0378; J0696; J2543; J3370; J7030

== ENCOUNTER 2022-12-27 16:11 | Emergency (ER) | payer MEDICARE, MEDICAID ==
[~2022-12-27] VITALS: Ht 157.5 cm; Wt 60.0 kg
[~2022-12-27 16:11] MED LIST changes: +ALBU18HF2 IH; +AMOX-419 PO; +CARB100T7 PO; -CARB300C2 PO; -DIAZ5TAB22 PO; -EUCA50OI5 TP; -IBUP-1986 PO; -LORA10TA7 PO; -SULF1TAB45 PO
[2022-12-27 16:24] VITALS: TEMP 98
[2022-12-27] MEDS ORDERED: LORazepam 2 mg/ml vial IM ONE (18:20)
[2022-12-27] MEDS ORDERED: LidoCAINE 2% Topical Jelly 11mL syringe TOP ONE (18:30)
[2022-12-27 19:43] VITALS: BP 120/88; PULSE 79; RESP 18; O2SAT 97
== END 2022-12-27 20:25 | disposition home or self-care (01) ==
LOC: ER 16:12
DX: R33.9 Retention of urine, unspecified (principal); T83.098A Other mechanical complication of other urinary catheter, initial encounter; Z79.899 Other long term (current) drug therapy; Z79.2 Long term (current) use of antibiotics
CPT/HCPCS: 51702; 99284; J2060; A4314

== ENCOUNTER 2023-03-08 16:46 | Emergency (ER) | payer MEDICARE, MEDICAID ==
[~2023-03-08] VITALS: Ht 157.5 cm; Wt 65.0 kg
[~2023-03-08 16:46] MED LIST changes: -AMOX-419 PO
[2023-03-08 17:00] VITALS: BP 130/61; PULSE 66; RESP 18; TEMP 97.8; O2SAT 98
--- NOTE | 2023-03-08 19:43 | NUR ---
I CONCUR WITH THE ASSESSMENT PERFORMED BY YAN CONTRERAS
[2023-03-08 19:51] LABS: PROTHROMBIN TIME 11.2 SECONDS (9.0-12.0)
[2023-03-08 19:56] LABS: ANION GAP 6 (8-16); BLOOD UREA NITROGEN 9 MG/DL (7-18); CALCIUM 8.9 MG/DL (8.5-10.1); CHLORIDE 101 MMOL/L (99-107); CREATININE 0.69 MG/DL (0.60-1.10); GLUCOSE 92 MG/DL (70-104); POTASSIUM 3.8 MMOL/L (3.5-5.1); SODIUM 135 MMOL/L (135-145); TOTAL CARBON DIOXIDE 27.7 MMOL/L (24-32); eCRCL 101 ML/MIN; eGFR > 90 ML/MIN
[2023-03-08 19:57] LABS: ALANINE AMINOTRANSFERASE 29 U/L (12-78); ALBUMIN 3.9 G/DL (3.4-5.0); ALBUMIN/GLOBULIN RATIO 1.3 (1.1-1.5); ALKALINE PHOSPHATASE 112 IU/L (46-116); ASPARTATE AMINO TRANSFERASE 22 U/L (10-37); BILIRUBIN,TOTAL 0.3 MG/DL (0.1-1.0)
[2023-03-08 20:06] LABS: BILIRUBIN,URINE NEGATIVE (Neg); CLARITY,URINE SLIGHTLY CLOUDY (Clear); COLOR,URINE YELLOW (Yellow); GLUCOSE, URINE NEGATIVE (Neg); KETONES,URINE 15 mg/dl (Neg); LEUKOCYTE ESTERASE ,URINE TRACE (Neg); NITRITES, URINE POSITIVE (Neg); OCCULT BLOOD,URINE SMALL (Neg); PROTEIN,URINE NEGATIVE (Neg); UROBILINOGEN,URINE 0.2 E.U/dL (0.2-1.0)
[2023-03-08 20:28] LABS: UA COLLECTION TYPE FOLEY CATH
[2023-03-08 20:30] LABS: BACTERIA,URINE 4+ /HPF (Neg); SQUAMOUS EPITHELIAL CELL,UR FEW /LPF (FEW)
[2023-03-08 20:31] LABS: WBC CLUMPS,URINE FEW /HPF (NEGATIVE)
== END 2023-03-08 20:34 | disposition home or self-care (01) ==
LOC: ER 16:47
DX: S30.22XA Contusion of scrotum and testes, initial encounter (principal); S00.03XA Contusion of scalp, initial encounter; X58.XXXA Exposure to other specified factors, initial encounter; Y93.89 Activity, other specified; Y92.89 Other specified places as the place of occurrence of the external cause; Y99.8 Other external cause status
CPT/HCPCS: 36415; 70450; 76870; 80053; 81001; 85610; 99284

== ENCOUNTER 2023-11-05 08:52 | Emergency (ER) | payer MEDICARE, MEDICAID ==
[~2023-11-05] VITALS: Ht 170.2 cm; Wt 49.5 kg
[2023-11-05 10:14] LABS: BASOPHILS % (AUTO) 0.3 % (0-1); EOSINOPHILS # (AUTO) 0.1 X10'3 (0-0.9); EOSINOPHILS % (AUTO) 1.1 % (0-6); HEMATOCRIT 47.6 % (42.0-52.0); HEMOGLOBIN 15.7 g/dl (14.0-17.9); LYMPHOCYTES # (AUTO) 1.7 X10'3 (1.1-4.8); LYMPHOCYTES % (AUTO) 28.4 % (21-51); MEAN CORPUSCULAR HEMOGLOBIN 31.4 PG (27.0-31.0); MEAN CORPUSCULAR HGB CONC 33.1 g/dL (33.0-36.5); MEAN CORPUSCULAR VOLUME 94.8 FL (78-98); MEAN PLATELET VOLUME 8.6 FL (7.4-10.4); MONOCYTES # (AUTO) 0.6 X10'3 (0-0.9); MONOCYTES % (AUTO) 10.5 % (2-12); NEUTROPHILS # (AUTO) 3.7 X10'3 (1.8-7.7); NEUTROPHILS % (AUTO) 59.7 % (42-75); PLATELET COUNT 188 X10'3 (140-440); RED BLOOD COUNT 5.02 X10'6 (4.70-6.10); RED CELL DISTRIBUTION WIDTH 13.8 % (11.5-14.5); WHITE BLOOD COUNT 6.2 X10'3 (4.5-11.0)
[2023-11-05 10:35] LABS: ALANINE AMINOTRANSFERASE 40 U/L (12-78); ALBUMIN 3.8 G/DL (3.4-5.0); ALBUMIN/GLOBULIN RATIO 1.1 (1.1-1.5); ALKALINE PHOSPHATASE 78 IU/L (46-116); ANION GAP 3 (8-16); ASPARTATE AMINO TRANSFERASE 14 U/L (10-37); BILIRUBIN,TOTAL 0.3 MG/DL (0.1-1.0); BLOOD UREA NITROGEN 18 MG/DL (7-18); BUN/CREATININE RATIO 22.5 (10.0-20.0); CALCIUM 9.4 MG/DL (8.5-10.1); CHLORIDE 104 MMOL/L (99-107); GLUCOSE 93 MG/DL (70-104); LIPASE 46 U/L (16-77); POTASSIUM 4.4 MMOL/L (3.5-5.1); SODIUM 140 MMOL/L (135-145); TOTAL CARBON DIOXIDE 32.9 MMOL/L (24-32); TOTAL PROTEIN 7.4 G/DL (6.4-8.2); eCRCL 79 ML/MIN; eGFR > 90 ML/MIN
[2023-11-05 11:34] LABS: BILIRUBIN,URINE NEGATIVE (Neg); CLARITY,URINE CLEAR (Clear); COLOR,URINE YELLOW (Yellow); GLUCOSE, URINE NEGATIVE (Neg); KETONES,URINE NEGATIVE (Neg); LEUKOCYTE ESTERASE ,URINE TRACE (Neg); NITRITES, URINE NEGATIVE (Neg); OCCULT BLOOD,URINE TRACE-INTACT (Neg); PH,URINE 6.5 (4.8-8.0); PROTEIN,URINE NEGATIVE (Neg); UROBILINOGEN,URINE 0.2 E.U/dL (0.2-1.0)
[2023-11-05 11:44] LABS: UA COLLECTION TYPE STRAIGHT CATH
[2023-11-05 11:46] LABS: BACTERIA,URINE 1+ /HPF (Neg); MUCUS STRANDS FEW /LPF (Neg); SQUAMOUS EPITHELIAL CELL,UR FEW /LPF (FEW)
[2023-11-05 11:47] LABS: RENAL CELLS, URINE MODERATE /HPF; TRANSITIONAL EPI CELLS,URINE FEW /HPF
[2023-11-05] MEDS ORDERED: AMOX-580 PO (11:59)
[2023-11-05 12:05] VITALS: BP 127/81; PULSE 63; RESP 16; TEMP 98.1; O2SAT 96
== END 2023-11-05 12:04 | disposition home or self-care (01) ==
LOC: ER 08:53
DX: N39.0 Urinary tract infection, site not specified (principal); F88 Other disorders of psychological development; Z79.899 Other long term (current) drug therapy
CPT/HCPCS: 36415; 80053; 81001; 83690; 85025; 87088; 99283; C1758

== ENCOUNTER 2024-03-15 00:44 | Emergency (ER) | payer MEDICARE, MEDICAID ==
[~2024-03-15] VITALS: Ht 154.9 cm; Wt 49.1 kg
[~2024-03-15 00:44] MED LIST changes: -BENZ1TAB93 PO; +BENZ1TAB97 PO; -CARB100T7 PO; -SENN-263 PO; +SENN-360 PO; +TEG100T PO
[2024-03-15] MEDS ORDERED: ketamine 10mg/ml 20ml inj 0 MG in normal saline 100ml IV soln 100 ML IV ONE (01:35)
[2024-03-15] MEDS: ketamine 50 mg/ml 10ml vial IM ONE (03:07)
[2024-03-15] MEDS: LORazepam 2 mg/ml vial IM ONE (03:41)
[2024-03-15] MEDS: propofol 10mg/ml 20ml vial IV ONE (04:08)
[2024-03-15] MEDS: bacitracin 15gm ointment TP ONE (04:30)
[2024-03-15 06:28] VITALS: BP 106/64; PULSE 74; RESP 20; TEMP 97.2; O2SAT 98
== END 2024-03-15 06:48 | disposition home or self-care (01) ==
LOC: ER 00:44
DX: S01.91XA Laceration without foreign body of unspecified part of head, initial encounter (principal); M81.0 Age-related osteoporosis without current pathological fracture; N40.0 Benign prostatic hyperplasia without lower urinary tract symptoms; R41.0 Disorientation, unspecified; Z79.899 Other long term (current) drug therapy; W19.XXXA Unspecified fall, initial encounter; Y93.9 Activity, unspecified; Y92.89 Other specified places as the place of occurrence of the external cause; Y99.8 Other external cause status
CPT/HCPCS: 12013; 70450; 99152; 99285; A4620; A6402; A6446; J2060; J2704; J3490; J7030; Z7610; 94760; 96372; A6449